=== PATIENT | female | born 1945 ===

== ENCOUNTER 2020-09-20 16:28 | Outpatient (REF) | payer MEDICARE, BC, SELFPAY ==
[2020-09-20 16:45] LABS: Abs Immature Grans 0.01 10^3/uL (0.0-0.06); Absolute Basophil Count 0.04 10^3/uL (0.0-0.2); Absolute Lymphocyte Count 0.51 10^3/uL (1.2-3.4); Absolute Monocyte Count 0.34 10^3/uL (0.1-0.8); Basophils % 0.9; Eosinophils % 2.2; HCT 34.5 % (36.0-46.0); HGB 10.7 g/dL (11.2-15.7); Immature Grans % 0.2; Lymphocytes % 11.3; MCH 29.8 pg (27.0-33.0); MCV 96.1 fL (80-95); MPV 9.4 fL (8.0-11.0); Monocytes % 7.6; Neutrophils % 77.8; Nucleated RBC 0 %; Platelet Count 347 10^3/uL (130-400); RBC 3.59 10^6/uL (3.93-5.22); RDW 13.2 % (11.7-14.6); RDW-SD 46.7 fL
[2020-09-20 17:10] LABS: ALT 27 U/L (14-59); AST 21 U/L (15-37); Albumin 2.9 g/dL (3.4-5.0); Alkaline Phosphatase 70 U/L (46-116); Anion Gap 5.3 mmol/L (3-11); BUN 22 mg/dL (7-18); Bilirubin, Total 0.3 mg/dL (0.2-1.0); CO2 29.7 mmol/L (21.0-32.0); CREATININE 0.7 mg/dL (0.55-1.02); Calcium 8.5 mg/dL (8.5-10.1); Chloride 108 mmol/L (98-107); Ferritin 17 ng/mL (8-252); Glucose 90 mg/dL (74-106); Potassium 4.1 mmol/L (3.5-5.1); Sodium 143 mmol/L (136-145); Total Protein 5.5 g/dL (6.4-8.2); Vitamin B12 526 pg/mL (193-986)
== END 2020-09-20 16:29 | disposition home or self-care (01) ==
LOC: NCHCN 16:28
PROVIDERS: Visit Provider Family Medicine
DX: K90.9 Intestinal malabsorption, unspecified (principal)
CPT/HCPCS: 80053; 82607; 82728; 85025

== ENCOUNTER 2020-11-10 10:22 | Outpatient (REF) | payer MEDICARE, BC, SELFPAY ==
[2020-11-10 14:05] LABS: HCT 37.3 % (36.0-46.0); HGB 11.7 g/dL (11.2-15.7); MCH 30.6 pg (27.0-33.0); MCHC 31.4 % (32.0-36.0); MCV 97.6 fL (80-95); MPV 9.9 fL (8.0-11.0); Platelet Count 268 10^3/uL (130-400); RBC 3.82 10^6/uL (3.93-5.22); RDW 14.2 % (11.7-14.6); WBC 3.52 10^3/uL (4.4-10.8)
[2020-11-10 14:33] LABS: Ferritin 21 ng/mL (8-252)
== END 2020-11-10 10:23 | disposition home or self-care (01) ==
LOC: NCHCN 10:22
PROVIDERS: Visit Provider Family Medicine
DX: E66.1 Drug-induced obesity (principal)
CPT/HCPCS: 85027; 82728

== ENCOUNTER 2021-03-14 14:04 | Outpatient (REF) | payer MEDICARE, BC, SELFPAY ==
[2021-03-14 14:22] LABS: MCH 31.1 pg (27.0-33.0); MCHC 31.4 % (32.0-36.0); MCV 98.9 fL (80-95); MPV 9.7 fL (8.0-11.0); Platelet Count 298 10^3/uL (130-400); RBC 3.54 10^6/uL (3.93-5.22); RDW 13.2 % (11.7-14.6); RDW-SD 48.1 fL; WBC 4.25 10^3/uL (4.4-10.8)
[2021-03-14 15:14] LABS: ALT 26 U/L (14-59); AST 22 U/L (15-37); Albumin 3.1 g/dL (3.4-5.0); Alkaline Phosphatase 71 U/L (46-116); Anion Gap 6.5 mmol/L (3-11); BUN 20 mg/dL (7-18); Bilirubin, Total 0.3 mg/dL (0.2-1.0); CO2 28.5 mmol/L (21.0-32.0); CREATININE 0.7 mg/dL (0.55-1.02); Calcium 8.6 mg/dL (8.5-10.1); Chloride 107 mmol/L (98-107); Glucose 78 mg/dL (74-106); Potassium 4.2 mmol/L (3.5-5.1); Sodium 142 mmol/L (136-145); Total Protein 5.5 g/dL (6.4-8.2)
== END 2021-03-14 14:05 | disposition home or self-care (01) ==
LOC: NCHCN 14:04
PROVIDERS: PCP Family Medicine; Visit Provider Family Medicine
DX: R53.82 Chronic fatigue, unspecified (principal); M81.8 Other osteoporosis without current pathological fracture; M79.7 Fibromyalgia; Z00.00 Encounter for general adult medical examination without abnormal findings
CPT/HCPCS: 80053; 85027

== ENCOUNTER 2021-06-02 04:00 | Outpatient (CLI) | payer MEDICARE, BC, SELFPAY ==
[2021-06-02 10:13] LABS: HCT 32.4 % (36.0-46.0); HGB 10.3 g/dL (11.2-15.7); MCH 32.3 pg (27.0-33.0); MCHC 31.8 % (32.0-36.0); MCV 101.6 fL (80-95); Platelet Count 287 10^3/uL (130-400); RBC 3.19 10^6/uL (3.93-5.22); RDW 14.1 % (11.7-14.6); WBC 4.65 10^3/uL (4.4-10.8)
[2021-06-02 11:25] LABS: Iron 75 ug/dL (50-170); Total Iron Binding Capacity 295 ug/dL (250-450); Transferrin Sat 25 % (15-50)
[2021-06-02 11:38] LABS: Ferritin 32 ng/mL (8-252)
[2021-06-02 22:04] LABS: CEA <0.5 ng/mL (See Note)
== END 2021-06-02 04:01 | disposition home or self-care (01) ==
LOC: LBO 04:00
PROVIDERS: PCP Nurse Practitioner; Visit Provider Nurse Practitioner
DX: Z85.048 Personal history of other malignant neoplasm of rectum, rectosigmoid junction, and anus (principal); K90.9 Intestinal malabsorption, unspecified
CPT/HCPCS: 36415; 85027; 82378; 82728; 83540; 83550

== ENCOUNTER 2021-08-23 04:10 | Outpatient (RCR) | payer MEDICARE, BC, SELFPAY ==
[2021-08-16] MEDS: IRON SUCROSE COMPLEX 300 MG in Normal Saline 250 ML 176.667 MG IVPB (11:25)
[2021-08-16] MEDS: Normal Saline Flush 10 ML SYR IVP (11:32)
[2021-08-23] MEDS: Normal Saline Flush 10 ML SYR IVP (10:14)
[2021-08-23] MEDS: IRON SUCROSE COMPLEX 300 MG in Normal Saline 250 ML 176.667 MG IVPB (10:23)
== END 2021-08-29 23:59 | disposition home or self-care (01) ==
LOC: INF 04:10
PROVIDERS: PCP Nurse Practitioner; Visit Provider Nurse Practitioner Acute Care
DX: D50.9 Iron deficiency anemia, unspecified (principal)
CPT/HCPCS: 96365; 96366; J1756

== ENCOUNTER 2021-08-30 03:33 | Outpatient (RCR) | payer MEDICARE, BC, SELFPAY ==
[2021-08-30] MEDS: Normal Saline Flush 10 ML SYR IVP (10:13)
[2021-08-30] MEDS: IRON SUCROSE COMPLEX 300 MG in Normal Saline 250 ML 176.667 MG IVPB (10:17)
== END 2021-09-28 23:59 | disposition home or self-care (01) ==
LOC: INF 03:33
PROVIDERS: PCP Nurse Practitioner; Visit Provider Nurse Practitioner Acute Care
DX: D50.9 Iron deficiency anemia, unspecified (principal); K90.9 Intestinal malabsorption, unspecified
CPT/HCPCS: 96365; 96366; J1756

== ENCOUNTER 2021-09-27 01:57 | Outpatient (CLI) | payer MEDICARE, BC, SELFPAY ==
[2021-09-27 10:58] LABS: HCT 32.2 % (36.0-46.0); HGB 9.8 g/dL (11.2-15.7); MCH 29.1 pg (27.0-33.0); MCHC 30.4 % (32.0-36.0); MCV 96 fL (80-95); MPV 8.4 fL (8.0-11.0); Platelet Count 312 10^3/uL (130-400); RBC 3.37 10^6/uL (3.93-5.22); RDW 13.1 % (11.7-14.6); WBC 5.21 10^3/uL (4.4-10.8)
[2021-09-27 11:51] LABS: Iron 39 ug/dL (50-170); Total Iron Binding Capacity 346 ug/dL (250-450); Transferrin Sat 11 % (15-50)
[2021-09-27 12:04] LABS: Ferritin 57 ng/mL (8-252)
[2021-09-28 08:40] LABS: Transferrin 259 mg/dL (201-352)
== END 2021-09-27 01:58 | disposition home or self-care (01) ==
LOC: LBO 01:57
PROVIDERS: PCP Nurse Practitioner; Visit Provider Nurse Practitioner
DX: E61.1 Iron deficiency (principal); K90.89 Other intestinal malabsorption
CPT/HCPCS: 36415; 85027; 82728; 83540; 83550; 84466

== ENCOUNTER 2021-10-24 03:08 | Outpatient (RCR) | payer MEDICARE, BC, SELFPAY ==
[2021-10-10] MEDS: Normal Saline Flush 10 ML SYR IVP (12:19)
[2021-10-10] MEDS: IRON SUCROSE COMPLEX 300 MG in Normal Saline 250 ML 176.667 MG IVPB (12:22)
[2021-10-16] MEDS: IRON SUCROSE COMPLEX 300 MG in Normal Saline 250 ML 176.667 MG IVPB (11:11)
[2021-10-16] MEDS: Normal Saline Flush 10 ML SYR IVP (11:11)
[2021-10-24] MEDS: Normal Saline Flush 10 ML SYR IVP (11:17)
[2021-10-24] MEDS: IRON SUCROSE COMPLEX 300 MG in Normal Saline 250 ML 176.667 MG IVPB (11:25)
== END 2021-10-29 23:59 | disposition home or self-care (01) ==
LOC: INF 03:08
PROVIDERS: PCP Nurse Practitioner; Visit Provider Nurse Practitioner Acute Care
DX: D50.9 Iron deficiency anemia, unspecified (principal); K90.9 Intestinal malabsorption, unspecified
CPT/HCPCS: 96365; 96366; J1756

== ENCOUNTER 2021-12-07 03:00 | Outpatient (CLI) | payer MEDICARE, BC, SELFPAY ==
[2021-12-07 12:22] LABS: Reticulocyte 2.9 % (0.5-2.4)
[2021-12-07 12:22] LABS: MCH 30.2 pg (27.0-33.0); MCHC 32.4 % (32.0-36.0); MCV 93 fL (80-95); MPV 9.5 fL (8.0-11.0); Platelet Count 307 10^3/uL (130-400); RBC 3.64 10^6/uL (3.93-5.22); RDW-SD 55.2 fL; WBC 4.98 10^3/uL (4.4-10.8)
[2021-12-07 12:26] LABS: Iron 197 ug/dL (50-170); Total Iron Binding Capacity 327 ug/dL (250-450); Transferrin Sat 60 % (15-50)
[2021-12-07 13:05] LABS: Ferritin 48 ng/mL (8-252)
== END 2021-12-07 03:01 | disposition home or self-care (01) ==
LOC: LOS 03:00
PROVIDERS: Internal Medicine Hematology; PCP Nurse Practitioner; Visit Provider Nurse Practitioner
DX: E61.1 Iron deficiency (principal); K90.9 Intestinal malabsorption, unspecified
CPT/HCPCS: 36415; 85027; 85045; 82728; 83540; 83550

== ENCOUNTER 2022-01-31 03:26 | Outpatient (CLI) | payer MEDICARE, BC, SELFPAY ==
[2022-01-31 12:18] LABS: Abs Immature Grans 0.01 10^3/uL (0.0-0.06); Absolute Basophil Count 0.04 10^3/uL (0.0-0.2); Absolute Eosinophil Count 0.08 10^3/uL (0.0-0.7); Absolute Monocyte Count 0.32 10^3/uL (0.1-0.8); Absolute Neutrophil Count 2.69 10^3/uL (1.2-6.7); Eosinophils % 2.1; HCT 36.2 % (36.0-46.0); HGB 11.4 g/dL (11.2-15.7); Immature Grans % 0.3; Lymphocytes % 18.2; MCH 30.7 pg (27.0-33.0); MCHC 31.5 % (32.0-36.0); MCV 98 fL (80-95); MPV 9.6 fL (8.0-11.0); Monocytes % 8.3; Neutrophils % 70.1; Platelet Count 272 10^3/uL (130-400); RBC 3.71 10^6/uL (3.93-5.22); RDW 14.4 % (11.7-14.6); RDW-SD 51.9 fL; Reticulocyte 1.8 % (0.5-2.4); WBC 3.84 10^3/uL (4.4-10.8)
[2022-01-31 12:39] LABS: Iron 48 ug/dL (50-170); Total Iron Binding Capacity 353 ug/dL (250-450); Transferrin Sat 14 % (15-50)
[2022-01-31 12:48] LABS: Ferritin 32 ng/mL (8-252)
== END 2022-01-31 03:27 | disposition home or self-care (01) ==
LOC: LOS 03:28
PROVIDERS: PCP Nurse Practitioner; Visit Provider Internal Medicine Hematology
DX: D50.9 Iron deficiency anemia, unspecified (principal); K92.2 Gastrointestinal hemorrhage, unspecified
CPT/HCPCS: 36415; 82728; 83540; 83550; 85025; 85045

== ENCOUNTER 2022-02-23 00:58 | Outpatient (RCR) | payer MEDICARE, BC, SELFPAY ==
[2022-02-23] MEDS: Normal Saline Flush 10 ML SYR IVP (11:15)
[2022-02-23] MEDS: IRON SUCROSE COMPLEX 300 MG in Normal Saline 250 ML 176.667 MG IVPB (11:20)
== END 2022-02-28 23:59 | disposition home or self-care (01) ==
LOC: INF 00:58
PROVIDERS: PCP Nurse Practitioner Family; Visit Provider Nurse Practitioner Family
DX: D50.9 Iron deficiency anemia, unspecified (principal)
CPT/HCPCS: 96365; 96366; J1756

== ENCOUNTER 2022-03-08 01:23 | Outpatient (RCR) | payer MEDICARE, BC, SELFPAY ==
[2022-03-01] MEDS: Normal Saline Flush 10 ML SYR IVP (10:57)
[2022-03-01] MEDS: IRON SUCROSE COMPLEX 300 MG in Normal Saline 250 ML 176.667 MG IVPB (10:57)
[2022-03-08] MEDS: Normal Saline Flush 10 ML SYR IVP (11:19)
[2022-03-08] MEDS: IRON SUCROSE COMPLEX 300 MG in Normal Saline 250 ML 176.667 MG IVPB (11:21)
== END 2022-03-31 23:59 | disposition home or self-care (01) ==
LOC: INF 01:23
PROVIDERS: PCP Nurse Practitioner Family; Visit Provider Nurse Practitioner Family
DX: D50.9 Iron deficiency anemia, unspecified (principal)
CPT/HCPCS: 96365; 96366; J1756

== ENCOUNTER 2022-04-19 03:58 | Outpatient (CLI) | payer MEDICARE, BC, SELFPAY ==
[2022-04-19 12:36] LABS: HCT 34.8 % (36.0-46.0); HGB 11.4 g/dL (11.2-15.7); MCH 31.7 pg (27.0-33.0); MCHC 32.8 % (32.0-36.0); MCV 97 fL (80-95); MPV 9.4 fL (8.0-11.0); Platelet Count 299 10^3/uL (130-400); RDW 14.3 % (11.7-14.6); RDW-SD 50.3 fL; Reticulocyte 3.2 % (0.5-2.4); WBC 4.72 10^3/uL (4.4-10.8)
[2022-04-19 12:54] LABS: Ferritin 67 ng/mL (8-252)
[2022-04-19 13:05] LABS: Iron 127 ug/dL (50-170); Total Iron Binding Capacity 340 ug/dL (250-450); Transferrin Sat 37 % (15-50)
== END 2022-04-19 03:59 | disposition home or self-care (01) ==
LOC: LOS 03:58
PROVIDERS: PCP Nurse Practitioner Family; Visit Provider Nurse Practitioner Adult Health
DX: D50.9 Iron deficiency anemia, unspecified (principal)
CPT/HCPCS: 36415; 85027; 82728; 83540; 83550; 85045

== ENCOUNTER 2022-07-12 09:38 | Outpatient (REF) | payer MEDICARE, BC, SELFPAY ==
[2022-07-12 14:42] LABS: Abs Immature Grans 0.02 10^3/uL (0.0-0.06); Absolute Basophil Count 0.04 10^3/uL (0.0-0.2); Absolute Eosinophil Count 0.14 10^3/uL (0.0-0.7); Absolute Lymphocyte Count 0.56 10^3/uL (1.2-3.4); Absolute Monocyte Count 0.28 10^3/uL (0.1-0.8); Absolute Neutrophil Count 2.48 10^3/uL (1.2-6.7); Basophils % 1.1; HCT 40.4 % (36.0-46.0); HGB 12.5 g/dL (11.2-15.7); Immature Grans % 0.6; Lymphocytes % 15.9; MCH 30.3 pg (27.0-33.0); MCHC 30.9 % (32.0-36.0); MCV 98 fL (80-95); MPV 9.4 fL (8.0-11.0); Neutrophils % 70.4; Platelet Count 291 10^3/uL (130-400); RBC 4.12 10^6/uL (3.93-5.22); RDW 14.6 % (11.7-14.6); RDW-SD 52.8 fL; WBC 3.52 10^3/uL (4.4-10.8)
[2022-07-12 15:07] LABS: Anion Gap 7.1 mmol/L (3-11); BUN 22 mg/dL (7-18); CO2 27.9 mmol/L (21.0-32.0); CREATININE 0.6 mg/dL (0.55-1.02); Calculated LDL 66 mg/dL (<100); Chloride 106 mmol/L (98-107); Cholesterol 171 mg/dL (<200); Estimated GFR 92.97 (mL/min/1.73m2); Ferritin 37 ng/mL (8-252); Glucose 79 mg/dL (74-106); HDL Cholesterol 96 mg/dL (40-60); Sodium 141 mmol/L (136-145); TSH (W/Ref FT4) 1.95 uIU/mL (0.36-3.74); Triglyceride 46 mg/dL (<150); Vitamin B12 630 pg/mL (193-986)
[2022-07-12 15:50] LABS: Vitamin D 25 Total 25.6 ng/mL (30-100)
[2022-07-12 17:05] LABS: Iron 31 ug/dL (50-170); Total Iron Binding Capacity 364 ug/dL (250-450); Transferrin Sat 9 % (15-50)
== END 2022-07-12 09:39 | disposition home or self-care (01) ==
LOC: NCHCN 09:38
PROVIDERS: PCP Nurse Practitioner Family; Visit Provider Nurse Practitioner Family
DX: F41.8 Other specified anxiety disorders (principal); E61.1 Iron deficiency; K90.9 Intestinal malabsorption, unspecified; R53.82 Chronic fatigue, unspecified; M81.8 Other osteoporosis without current pathological fracture; M79.7 Fibromyalgia; Z90.49 Acquired absence of other specified parts of digestive tract; R79.89 Other specified abnormal findings of blood chemistry
CPT/HCPCS: 80048; 80061; 82306; 82607; 82728; 83540; 83550; 84443; 85025

== ENCOUNTER 2022-07-26 13:55 | Outpatient (REF) | payer MEDICARE, BC, SELFPAY ==
[2022-07-26 15:29] LABS: Folate > 20.0 ng/mL (8.6-20.0)
== END 2022-07-26 13:56 | disposition home or self-care (01) ==
LOC: NCHCN 13:55
PROVIDERS: PCP Nurse Practitioner Family; Visit Provider Nurse Practitioner Family
DX: E61.1 Iron deficiency (principal)
CPT/HCPCS: 82746

== ENCOUNTER 2022-08-06 00:56 | Outpatient (CLI) | payer MEDICARE, BC, SELFPAY ==
--- NOTE | 2022-08-06 10:35 | DI.RAD_ITS ---
Exam(s) XR HIP PELVIS ADULT BL EXAM: XR HIP PELVIS ADULT BLz CLINICAL HISTORY: SCOLIOSIS, M41.9; RT HIP PAIN, M25.551; CHRONIC LBP, M54.5. TECHNIQUE: 2D digital imaging was performed. Three views. COMPARISON: No exams were available for comparison FINDINGS: BONES: No acute fracture is present. No bony destructive lesion is seen. Advanced degenerative cardoza ges are noted in the lower lumbar spine. JOINTS: No dislocation present. Hip joint spaces are maintained. There is minimal acetabular spurrin g. There is mild spurring at the greater trochanters. The SI joints are unremarkable. SOFT TISSUE: Large quantity of stool is noted. IMPRESSION: Mild degenerative changes of both hips. DATA REPOSITORY: RADIATION DOSE DELIVERED:
== END 2022-08-06 01:16 ==
LOC: DI 00:56
PROVIDERS: PCP Nurse Practitioner Family; Visit Provider Nurse Practitioner Family
DX: M41.9 Scoliosis, unspecified (principal); M25.551 Pain in right hip; M54.50 Low back pain, unspecified
CPT/HCPCS: 73521

== ENCOUNTER 2022-08-13 11:29 | Outpatient (CLI) | payer MEDICARE, BC, SELFPAY ==
--- NOTE | 2022-08-13 11:00 | DI.RAD_ITS ---
Exam(s) XR LUMBAR SPINE COMPLETE EXAM: XR LUMBAR SPINE COMPLETE CLINICAL HISTORY: back pain. TECHNIQUE: 2D digital imaging was performed. Five views. COMPARISON: No exams were available for comparison FINDINGS: BONES: No fracture or destructive lesion. Vertebral body heights are maintained. Mild facet hypertro phy identified. DISKS: Asymmetric disc space narrowing on the left side at L3-4 and L4-5. Asymmetric disc space narr owing on the right at L1-2 and L2-3. ALIGNMENT: Scoliosis, convex toward the right in the lumbar region. Scoliosis convex to the left at the thoracolumbar junction. No spondylolisthesis. SOFT TISSUE: Large amount of stool, obscuring visualization of the sacrum. IMPRESSION: Degenerative changes and scoliosis. DATA REPOSITORY: RADIATION DOSE DELIVERED:
== END 2022-08-13 11:30 | disposition home or self-care (01) ==
LOC: DIORS 11:29
PROVIDERS: PCP Nurse Practitioner Family; Referring Provider Nurse Practitioner Family; Visit Provider Student in an Organized Health Care Education/Training Program
DX: M54.9 Dorsalgia, unspecified (principal); M41.9 Scoliosis, unspecified; M70.61 Trochanteric bursitis, right hip
CPT/HCPCS: 99203; 72110

== ENCOUNTER 2022-09-27 01:24 | Outpatient (CLI) | payer MEDICARE, BC, SELFPAY ==
--- NOTE | 2022-09-27 | DI.RAD_ITS ---
Exam(s) XR ABDOMEN FLAT PLATE EXAM: 2D digital imaging was performed. CLINICAL HISTORY: FOREIGN BODY IN DIGESTIVE TRACT,t18.9XXA,ASSESS FOR PILLCAM PASSAGE IN GI. COMPARISON: No exams were available for comparison TECHNIQUE: Supine views of the abdomen performed. FINDINGS: BOWEL GAS PATTERN: Nondistended. Large quantity of stool throughout the colon. CALCIFICATIONS: No radiopaque calcifications. OSSEOUS STRUCTURES: Degenerative changes and scoliosis. OTHER FINDINGS: Small electronic device position in low pelvis which may be be at the level of the re ctum. IMPRESSION: 1. Nonobstructive bowel gas pattern. Large quantity of stool. 2. PillCam noted in low pelvis which may lie in the rectum. DATA REPOSITORY: RADIATION DOSE DELIVERED:
== END 2022-09-27 01:44 ==
LOC: DI 01:24
PROVIDERS: PCP Nurse Practitioner Family; Visit Provider Internal Medicine Gastroenterology
DX: T18.9XXA Foreign body of alimentary tract, part unspecified, initial encounter (principal)
CPT/HCPCS: 74018

== ENCOUNTER 2022-09-27 11:22 | Outpatient (REF) | payer MEDICARE, BC, SELFPAY ==
[2022-09-27 14:34] LABS: Abs Immature Grans 0.02 10^3/uL (0.0-0.06); Absolute Basophil Count 0.06 10^3/uL (0.0-0.2); Absolute Eosinophil Count 0.08 10^3/uL (0.0-0.7); Absolute Lymphocyte Count 0.56 10^3/uL (1.2-3.4); Absolute Monocyte Count 0.33 10^3/uL (0.1-0.8); Absolute Neutrophil Count 3.84 10^3/uL (1.2-6.7); Basophils % 1.2; Eosinophils % 1.6; HCT 36.6 % (36.0-46.0); HGB 11.5 g/dL (11.2-15.7); Immature Grans % 0.4; Lymphocytes % 11.5; MCH 31.3 pg (27.0-33.0); MCHC 31.4 % (32.0-36.0); MCV 100 fL (80-95); MPV 9.5 fL (8.0-11.0); Monocytes % 6.7; Neutrophils % 78.6; Platelet Count 303 10^3/uL (130-400); RBC 3.68 10^6/uL (3.93-5.22); RDW 13.6 % (11.7-14.6); RDW-SD 50.3 fL; Reticulocyte 2.8 % (0.5-2.4); WBC 4.89 10^3/uL (4.4-10.8)
[2022-09-27 15:16] LABS: Iron 30 ug/dL (50-170); Total Iron Binding Capacity 305 ug/dL (250-450); Transferrin Sat 10 % (15-50)
[2022-09-27 15:30] LABS: Ferritin 48 ng/mL (8-252)
== END 2022-09-27 11:23 | disposition home or self-care (01) ==
LOC: NCHCN 11:22
PROVIDERS: PCP Nurse Practitioner Family; Visit Provider Nurse Practitioner Family
DX: D50.9 Iron deficiency anemia, unspecified (principal)
CPT/HCPCS: 82728; 83540; 83550; 85025; 85045

== ENCOUNTER 2022-10-16 00:35 | Outpatient (CLI) | payer MEDICARE, BC, SELFPAY ==
--- NOTE | 2022-10-16 | DI.RAD_ITS ---
Exam(s) XR ABDOMEN FLAT PLATE EXAM: 2D digital imaging was performed. CLINICAL HISTORY: IRON DEFICIENCY ADEMIA, D50.9. COMPARISON: CR XR LUMBAR SPINE COMPLETE from 08/13/2022 CR XR ABDOMEN FLAT PLATE from 09/27/2022 TECHNIQUE: Supine views of the abdomen performed. FINDINGS: BOWEL GAS PATTERN: Nondistended. There is a moderate amount of stool in the colon. CALCIFICATIONS: No radiopaque calcifications. OSSEOUS STRUCTURES: There is a right convex curvature of the lower lumbar spine. Degenerative change s are present in the spine. OTHER FINDINGS: The electronic device remains in the pelvis. The lung bases are clear. IMPRESSION: 1. Nonobstructive bowel gas pattern. 2. The small metallic device is again seen in the low pelvis. This may lie in the rectum or distal s igmoid colon. If further clarification is required, a noncontrast CT scan of the pelvis may be obtai elias. DATA REPOSITORY: RADIATION DOSE DELIVERED:
== END 2022-10-16 00:55 ==
LOC: DI 00:35
PROVIDERS: PCP Nurse Practitioner Family; Visit Provider Nurse Practitioner Family
DX: D50.9 Iron deficiency anemia, unspecified (principal)
CPT/HCPCS: 74018

== ENCOUNTER → 2022-12-28 00:31 | Outpatient (CLI) | payer MEDICARE, BC, SELFPAY ==
--- NOTE | 2022-12-28 11:56 | DI.RAD_ITS ---
Exam(s) RF SMALL BOWEL SERIES EXAM: RF SMALL BOWEL SERIES CLINICAL HISTORY: IRRITABLE BOWEL SYNDROME, CONSTIPATION, K58.1 TECHNIQUE: 2D and realtime digital imaging was performed. CONTRAST MATERIAL: Oral barium Oral water soluble contrast was administered. COMPARISON: No exams were available for comparison FINDINGS: Preliminary x-ray shows a moderate amount of stool throughout the colon. The patient has a left lowe r quadrant ostomy. There is an S-type scoliosis of the lumbar spine. The patient is also undergoing a capsule endoscopy. The small bowel demonstrates no structural abnormalities including structure, dilation, adhesion, or mass. The terminal ileum is identified and appears unremarkable. Normal transit time of 50 minutes. IMPRESSION: Normal appearance of the small bowel. RADIATION DOSE DELIVERED: doris Toscano=30.4 mGy
[2022-12-28] MEDS: Barium Sulfate 60% W/V 355 ML BTL PO (12:01)
== END ==
PROVIDERS: PCP Nurse Practitioner Family; Visit Provider Nurse Practitioner Family
DX: K58.1 Irritable bowel syndrome with constipation (principal)
CPT/HCPCS: 74250

== ENCOUNTER 2022-12-31 18:55 | Outpatient (REF) | payer MEDICARE, BC, SELFPAY ==
[2022-12-31 14:39] LABS: Abs Immature Grans 0.01 10^3/uL (0.0-0.06); Absolute Basophil Count 0.04 10^3/uL (0.0-0.2); Absolute Eosinophil Count 0.05 10^3/uL (0.0-0.7); Absolute Lymphocyte Count 0.73 10^3/uL (1.2-3.4); Absolute Monocyte Count 0.36 10^3/uL (0.1-0.8); Absolute Neutrophil Count 3.04 10^3/uL (1.2-6.7); Basophils % 0.9; Eosinophils % 1.2; HGB 12.1 g/dL (11.2-15.7); Immature Grans % 0.2; Lymphocytes % 17.3; MCH 31.3 pg (27.0-33.0); MCHC 32.7 % (32.0-36.0); MCV 96 fL (80-95); MPV 9.8 fL (8.0-11.0); Monocytes % 8.5; Neutrophils % 71.9; Platelet Count 284 10^3/uL (130-400); RBC 3.86 10^6/uL (3.93-5.22); RDW 15.1 % (11.7-14.6); RDW-SD 52.9 fL; WBC 4.23 10^3/uL (4.4-10.8)
[2022-12-31 14:47] LABS: ALT 25 U/L (14-59); AST 25 U/L (15-37); Albumin 3.2 g/dL (3.4-5.0); Alkaline Phosphatase 79 U/L (46-116); Anion Gap 6.6 mmol/L (3-11); BUN 20 mg/dL (7-18); Bilirubin, Total 0.6 mg/dL (0.2-1.0); CO2 29.4 mmol/L (21.0-32.0); CREATININE 0.7 mg/dL (0.55-1.02); Calcium 9.2 mg/dL (8.5-10.1); Chloride 104 mmol/L (98-107); Estimated GFR 89.58 (mL/min/1.73m2); Glucose 93 mg/dL (74-106); Potassium 4.1 mmol/L (3.5-5.1); Sodium 140 mmol/L (136-145); Total Protein 5.8 g/dL (6.4-8.2)
[2022-12-31 14:49] LABS: Iron 56 ug/dL (50-170); Total Iron Binding Capacity 303 ug/dL (250-450); Transferrin Sat 18 % (15-50)
== END 2022-12-31 18:56 | disposition home or self-care (01) ==
LOC: NCHCN 18:55
PROVIDERS: PCP Nurse Practitioner Family; Visit Provider Nurse Practitioner Family
DX: D50.9 Iron deficiency anemia, unspecified (principal)
CPT/HCPCS: 80053; 83540; 83550; 85025

== ENCOUNTER 2023-02-05 18:58 | Outpatient (CLI) | payer MEDICARE, BC, SELFPAY ==
[2023-02-05 13:08] LABS: Abs Immature Grans 0.01 10^3/uL (0.0-0.06); Absolute Basophil Count 0.04 10^3/uL (0.0-0.2); Absolute Eosinophil Count 0.13 10^3/uL (0.0-0.7); Absolute Monocyte Count 0.37 10^3/uL (0.1-0.8); Absolute Neutrophil Count 3.94 10^3/uL (1.2-6.7); Basophils % 0.8; Eosinophils % 2.5; HCT 40.3 % (36.0-46.0); HGB 13.1 g/dL (11.2-15.7); Immature Grans % 0.2; Lymphocytes % 13.5; MCH 31.9 pg (27.0-33.0); MCHC 32.5 % (32.0-36.0); MCV 98 fL (80-95); MPV 9.2 fL (8.0-11.0); Monocytes % 7.1; Neutrophils % 75.9; Platelet Count 259 10^3/uL (130-400); RBC 4.11 10^6/uL (3.93-5.22); RDW 14.6 % (11.7-14.6); RDW-SD 53.1 fL; WBC 5.19 10^3/uL (4.4-10.8)
[2023-02-06 20:15] LABS: Gliadin (Deamidated) Ab, IgA <10.0 U; Gliadin (Deamidated) Ab, IgG <10.0 U
[2023-02-06 23:03] LABS: Tissue Transglutaminase Ab IgA <1.2 U/mL; Tissue Transglutaminase Ab IgG <1.2 U/mL
== END 2023-02-05 18:59 | disposition home or self-care (01) ==
LOC: LBO 19:01
PROVIDERS: PCP Nurse Practitioner Family; Visit Provider Internal Medicine Gastroenterology
DX: K92.2 Gastrointestinal hemorrhage, unspecified (principal)
CPT/HCPCS: 36415; 83516; 85025

== ENCOUNTER → 2023-04-05 00:53 | Outpatient (CLI) | payer MEDICARE, BC, SELFPAY ==
--- NOTE | 2023-04-05 10:34 | DI.RAD_ITS ---
Exam(s) XR ABDOMEN FLAT PLATE EXAM: 2D digital imaging was performed. CLINICAL HISTORY: ABD PAIN,R10.9,WT LOSS,R63.4,CONSTIPATION DUE TO OUTLET DYSFUNCTION,K59.02. COMPARISON: CR XR ABDOMEN FLAT PLATE from 10/16/2022 CR,RF RF SMALL BOWEL SERIES from 12/28/2022 TECHNIQUE: Supine views of the abdomen performed. FINDINGS: BOWEL GAS PATTERN: Large quantity of stool. Dilatation small bowel loops in mid and right lower quad rant. Ostomy present. Metallic electronic device seen in mid pelvis. Present on prior examinations . This represents a tablet camera. CALCIFICATIONS: No radiopaque calcifications. OSSEOUS STRUCTURES: Normal scoliosis and degenerative changes. Visualized portions of the lungs are clear. Heart size normal. IMPRESSION: 1. Mild small bowel dilatation. Findings could represent ileus versus obstruction. 2. Ingested camera tablet remains present. DATA REPOSITORY: RADIATION DOSE DELIVERED:
== END ==
PROVIDERS: PCP Nurse Practitioner Family; Visit Provider Nurse Practitioner Family
DX: K59.02 Outlet dysfunction constipation (principal); R63.4 Abnormal weight loss; R10.9 Unspecified abdominal pain
CPT/HCPCS: 74018

== ENCOUNTER 2023-04-05 10:50 | Emergency (ER) | payer MEDICARE, BC, SELFPAY ==
[2023-04-05 10:59] VITALS: BP 119/84; PULSE 77; RESP 18; TEMP 36.8; O2SAT 99
--- NOTE | 2023-04-05 12:11 | ED.GENADUL_ITS ---
HPI General Stated Complaint: Abd Prob Mode of arrival: ambulatory. PHILLIP: 3 Date/Time Provider Initiated Documentation: 04/05/23 10:52. Limitations to Documentation: no limitations. Information obtained by: patient. HPI Narrative: 77-year-old female with multiple medical problems including history of malignant neoplasm of the rectum, status post colostomy remotely, here with abdominal pain and bloating with change in bowel movements over the past weeks. Patient notes intermittent severe crampy abdominal pain with decreased bowel movements. Patient has had workup by a gastrointestinal specialist including CT imaging, barium swallow and x-rays. She notes concern for a stricture and there is plan for endoscopic procedure to evaluate. She notes she had an outpatient abdominal x-ray today and was advised to come to the emergency by her primary care physician. She is hesitant about being here today and reluctant to pursue diagnostic workup per nursing. She does note concern for dehydration and lack of nutrition. Related Data Home Medications Medication Instructions Recorded Confirmed ascorbic acid (vitamin C) 100 mg 100 mg PO TID 05/16/21 04/05/23 tablet Brava Adhesive Remover Wipe 06/22/21 08/14/22 Brava Moldable Ring 2mm 06/22/21 08/14/22 Brava Skin Barrier Remover [place] 06/22/21 08/14/22 Brava Skin Barrier Wipe 06/22/21 08/14/22 Brava adhesive remover spray 06/22/21 08/14/22 Sensura [place] Click drainable pouch 06/22/21 08/14/22 Sensura [place] Click midi closed pouch 06/22/21 08/14/22 Sensura vidal click cut to fit 06/22/21 08/14/22 barrier cholecalciferol (vitamin D3) 25 25 mcg PO DAILY 06/22/21 04/05/23 mcg (1,000 unit) capsule cyanocobalamin (vitamin B-12) 1,000 mcg PO DAILY 06/22/21 04/05/23 1,000 mcg capsule estrogen PO .2Xweek 06/22/21 08/14/22 magnesium citrate 100 mg capsule 100 mg PO DAILY PRN 03/01/22 04/05/23 polyethylene glycol 3350 17 17 g PO DAILY PRN 04/05/23 04/05/23 gram/dose oral powder (ClearLax) Allergies Allergy/AdvReac Type Severity Reaction Status Date / Time Opioids-Methadone and Related Allergy Intermediate Unverified 04/05/23 11:05 fragrance Allergy Severe Uncoded 04/05/23 11:05 versyd Allergy Intermediate Uncoded 04/05/23 11:05 Review of Systems All systems reviewed & are unremarkable except as noted in HPI and below Constitutional Constitutional: Denies fever(s) Gastrointestinal Gastrointestinal: Reports as per HPI and Denies vomiting PFSH All Active Problems Abdominal pain (Acute) Abdominal bloating (Acute) Trochanteric bursitis, right hip (Acute) Scoliosis (Acute) Hormone imbalance (Acute) IBS (irritable bowel syndrome) (Chronic) Chronic low back pain (Acute) ligamentous following basket ball injury Osteoporosis, idiopathic (Acute) hip Colostomy present (Chronic) Malabsorption syndrome (Acute) Iron deficiency (Acute) Medical History Depression with anxiety Encounter for dual-energy x-ray absoptiometry review (~11/14/16) Mixed hyperlipidemia stable on diet History of shingles Tarsal tunnel syndrome left ankle, surg repair 2017 Recurrent varicose veins bilateral Primary fibromyalgia syndrome 1989' Chronic fatigue syndrome 1989' 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 Brother No problems noted. Brother Alcohol use disorder Maternal Grandfather , 68 Cancer leukemia Paternal Grandfather , ?? Alcohol use disorder Maternal Grandmother , 90? No problems noted. Paternal Grandmother , ? No problems noted. Social History Smoking/Tobacco Use Status: Former Tobacco Use tobacco type: pipe Quit Date: 04/01/69 Second Hand Exposure: Yes Smoking risk assessment performed?: Yes Alcohol Intake: current Alcohol Intake frequency: a few times a month Drug use: Never Substance use type: does not use Household members: none Housing: house Pets and animals: Yes Pets and animals: cat(s) Sexually active: No Do you think of yourself as: lesbian/lewis/homosexual Current gender identity: female How often do you talk on the phone with friends or family?: three or more times per week Do you belong to any clubs or organized social groups?: no Panel score (0-1 are the most socially isolated patients): 1 What type of physical activity do you participate in: walking, regular exercise and other Details: skiing Duration: 60-90 minutes/day Frequency: daily Seatbelt use: always Helmet use: Yes Drive intox or ride w/intox motor driver: No Exam Const General: cooperative and no acute distress HENMT Mouth: mucous membranes dry Eyes Conjunctivae: normal conjunctivae Sclera: normal sclerae Neck Neck: trachea midline and supple Resp Auscultation: clear to auscultation bilaterally, no rales, no rhonchi and no wheezes Cardio Rate: regular rate and not tachycardic Rhythm: regular rhythm GI Palpation: soft, not firm, no guarding, no masses, not rigid and tender in the RLQ and with rebound tenderness Auscultation: normal bowel sounds Skin General skin exam: no rashes or lesions noted Neuro General: patient alert, patient awake and tone normal Extrem General: no edema Psych Appearance: grossly normal Mental Status: mental status grossly normal Affect: anxious affect Course Vital Signs Vital signs: Vital Signs Temperature 36.8 C 04/05/23 10:59 Pulse 77 04/05/23 10:59 Respiratory Rate 18 04/05/23 10:59 Blood Pressure 119/84 04/05/23 10:59 Pulse Oximetry 99 04/05/23 10:59 Temperature 36.8 C 04/05/23 10:59 Temperature Source Oral 04/05/23 10:59 Pulse 77 04/05/23 10:59 Respiratory Rate 18 04/05/23 10:59 Respiratory Effort Normal, Non-Labored 04/05/23 11:07 Blood Pressure 119/84 04/05/23 10:59 Blood Pressure Position Sitting 04/05/23 10:59 Pulse Oximetry 99 04/05/23 10:59 Oxygen Delivery Method Room Air 04/05/23 10:59 Oxygen Flow Rate 0 04/05/23 10:59 Pain Level 4 04/05/23 10:59 Medical Decision Making 77-year-old female with history of remote rectal cancer that was treated with chemoradiation and colostomy, here today at the prompting of her primary care physician after having outpatient abdominal x-ray that shows ileus versus bowel obstruction. Patient has had severe intermittent abdominal cramping and pain in her right lower abdomen with bloating. Symptoms have been ongoing for weeks. Patient notes intermittent diarrhea and intermittent constipation. She is being evaluated by GI and has been referred to [facility] where she has had multiple diagnostic procedures including camera pill which is still retained in her bowel. On examination she is tender in her right lower abdomen with some localized bloating in that area. She does have rebound tenderness. Patient is concerned that she may be dehydrated and nutritionally depleted. She does have dry mucous membranes on examination. Plan to assess for acute surgical pathology including bowel obstruction versus other with CT of the abdomen and pelvis. Plan to check diagnostic labs to assess for significant electrolyte abnormalities, anemia, pancreatitis and liver dysfunction. I had a discussion with the patient about my diagnostic/treatment plan. Patient declines plan and wishes to leave against medical advise. I reiterated my concerns to the patient and explained the risks of leaving prior to completion of workup and treatment. I specifically emphasized the possibility of life- threatening or lifestyle modifying disease that would not be appropriately treated if they leave. Patient verbalized understanding of my concerns and the potential for life threatening or lifestyle modifying disease. Patient has capacity to make informed decision. I again explained my concerns and urged the patient to stay for treatment as outlined. Patient continued to refuse. I then discussed potential less ideal alternatives to diagnostic/treatment plan including IV fluids and reassessment and patient refused. I recommended that the patient follow-up with her GI specialist and primary care primary care physician KEILY or return to the Emergency Department at any time for further treatment. Quality:SDOH Health Related Social Needs: No Data to Display Discharge Plan Disposition Patient Disposition: Against Medical Advice Discharge Details Chief Complaint: Abd Prob Clinical Impression: Abdominal bloating, Abdominal pain Primary Care Provider: Irene Gonzales ED Provider: Alessandro Barrientos Home Meds and New Rx's Prescriptions: No Action (DME) Brava adhesive remover spray See Rx Instructions .Route .MEDSUPPLY Rx Instructions: item # [id number] (DME) Brava Moldable Ring 2mm See Rx Instructions .Route .MEDSUPPLY Rx Instructions: item# [id number] (DME) Brava Skin Barrier Wipe See Rx Instructions .Route .MEDSUPPLY Rx Instructions: Item # [id number] (DME) Brava Adhesive Remover Wipe See Rx Instructions .Route .MEDSUPPLY Rx Instructions: Item # [id number] (DME) Brava Skin Barrier Remover [place] See Rx Instructions .Route .MEDSUPPLY Rx Instructions: Item # [id number] (DME) Sensura vidal click cut to fit barrier See Rx Instructions .Route .MEDSUPPLY Rx Instructions: item # [id number] (DME) Sensura [place] Click midi closed pouch See Rx Instructions .Route .MEDSUPPLY Rx Instructions: Item # [id number] (DME) Sensura Vidal Click drainable pouch See Rx Instructions .Route .MEDSUPPLY Rx Instructions: Item # [id number] estrogen PO .2Xweek Rx Instructions: Compounded Estrogen E1 E2 0.5mg/ E3 4mg capsules [facility] [phone] cyanocobalamin (vitamin B-12) 1,000 mcg capsule 1,000 mcg PO DAILY cholecalciferol (vitamin D3) 25 mcg (1,000 unit) capsule 25 mcg PO DAILY magnesium citrate 100 mg capsule 100 mg PO DAILY PRN ascorbic acid (vitamin C) 100 mg tablet 100 mg PO TID Patient Comments: believes she takes 500mg polyethylene glycol 3350 [ClearLax] 17 gram/dose powder 17 g PO DAILY PRN Discharge Instructions Instructions: Against Medical Advice (ED) Additional Instructions: You had an abdominal x-ray today that revealed the followin. Mild small bowel dilatation. Findings could represent ileus versus obstruction. 2. Ingested camera tablet remains present. It was recommended that you have further diagnostics today including labs and CT imaging. You have provided informed refusal of diagnostic workup. Based on findings of x-ray and limited evaluation in the emergency department, understanding that you are leaving without further diagnostic workup, I would recommend close outpatient follow-up with your gastrointestinal specialist and maintain a clear liquid diet over the next 2 days. Advance diet slowly at the direction of your GI specialist. Please contact your primary care physician to arrange follow-up. Return to the ER at any time for further workup and treatment as recommended. Referrals: Irene Gonzales [Primary Care Provider] -
== END 2023-04-05 12:18 | disposition left against medical advice (07) ==
PROVIDERS: Emergency Provider Student in an Organized Health Care Education/Training Program; PCP Nurse Practitioner Family
DX: R10.31 Right lower quadrant pain (principal); R14.0 Abdominal distension (gaseous); Z85.048 Personal history of other malignant neoplasm of rectum, rectosigmoid junction, and anus; Z93.3 Colostomy status
CPT/HCPCS: 80053; 83690; 99283; 74018; 83605; 85025

== ENCOUNTER 2023-07-15 14:23 | Outpatient (REF) | payer MEDICARE, BC, SELFPAY ==
[2023-07-15 15:28] LABS: Abs Immature Grans 0.01 10^3/uL (0.0-0.06); Absolute Basophil Count 0.04 10^3/uL (0.0-0.2); Absolute Eosinophil Count 0.06 10^3/uL (0.0-0.7); Absolute Lymphocyte Count 0.67 10^3/uL (1.2-3.4); Absolute Monocyte Count 0.32 10^3/uL (0.1-0.8); Absolute Neutrophil Count 3.39 10^3/uL (1.2-6.7); Basophils % 0.9; Eosinophils % 1.3; HCT 42.4 % (36.0-46.0); HGB 13.6 g/dL (11.2-15.7); Immature Grans % 0.2; Lymphocytes % 14.9; MCH 31.5 pg (27.0-33.0); MCHC 32.1 % (32.0-36.0); MCV 98 fL (80-95); MPV 9.7 fL (8.0-11.0); Monocytes % 7.1; Neutrophils % 75.6; Platelet Count 244 10^3/uL (130-400); RBC 4.32 10^6/uL (3.93-5.22); RDW 13.8 % (11.7-14.6); RDW-SD 50.5 fL; WBC 4.49 10^3/uL (4.4-10.8)
[2023-07-15 15:54] LABS: Ferritin 119 ng/mL (8-252)
== END 2023-07-15 14:24 | disposition home or self-care (01) ==
LOC: NCHCN 14:23
PROVIDERS: PCP Nurse Practitioner Family; Visit Provider Nurse Practitioner Family
DX: K92.2 Gastrointestinal hemorrhage, unspecified (principal)
CPT/HCPCS: 82728; 85025

== ENCOUNTER → 2023-07-29 02:18 | Outpatient (CLI) | payer MEDICARE, BC, SELFPAY ==
--- NOTE | 2023-07-29 07:00 | DI.MAMMO_ITS ---
Exam(s) MAMMO SCREENING EXAM: MAMMO SCREENING CLINICAL HISTORY: screening,z12.39 TECHNIQUE: Mammograms were interpreted according to the usual protocol including computer analysis w ith CAD system, tomosynthesis and C-view imaging. COMPARISON: The patient's outside examinations are not yet available for comparison. An addendum wi ll be issued when and if they become available. FINDINGS: The breasts are composed of heterogeneously dense fibroglandular densities, Breast Density category C . No suspicious masses or suspicious microcalcifications are seen. No skin thickening or abnormal axillary lymph nodes are seen. IMPRESSION: BI-RADS Category 1, Negative mammogram. Yearly screening mammography is recommended. Breast Density Category C, heterogeneously Dense. The mammogram demonstrates the patient's breast tissue is dense. Dense breast tissue is very common a nd is not abnormal but dense breast tissue can make it harder to find cancer on a mammogram. Also, de nse breast tissue may increase breast cancer risk. This information about the result of the mammogram report was provided to the patient to raise their awareness. Use this report when you speak with the patient about their risks for breast cancer, which includes their family history. At that time, you may recommend additional screening tests (Ultrasound or MRI) as they might be useful based on their r isk. A negative radiographic report should not delay biopsy if a dominant or clinically suspicious mass is present. Up to ten percent of cancers are not identified on mammography. A negative report may reinforce clinical impression. Adenosis and dense breasts may obscure an underlying neoplasm. False positive reports average 6 to 10%.
== END ==
PROVIDERS: PCP Nurse Practitioner Family; Visit Provider Obstetrics & Gynecology
DX: Z12.31 Encounter for screening mammogram for malignant neoplasm of breast (principal)
CPT/HCPCS: 77063; 77067

== ENCOUNTER 2023-09-03 04:59 | Outpatient (CLI) | payer MEDICARE, BC, SELFPAY ==
[2023-09-03 18:32] LABS: Estradiol 27 pg/mL (See Note)
== END 2023-09-03 05:00 | disposition home or self-care (01) ==
LOC: LBO 04:59
PROVIDERS: PCP Nurse Practitioner Family; Visit Provider Obstetrics & Gynecology
DX: K90.9 Intestinal malabsorption, unspecified (principal); E34.9 Endocrine disorder, unspecified
CPT/HCPCS: 36415; 82670

== ENCOUNTER 2023-12-13 15:42 | Outpatient (REF) | payer MEDICARE, BC, SELFPAY ==
[2023-12-13 21:57] LABS: Abs Immature Grans 0.01 10^3/uL (0.0-0.06); Absolute Basophil Count 0.05 10^3/uL (0.0-0.2); Absolute Lymphocyte Count 0.74 10^3/uL (1.2-3.4); Absolute Monocyte Count 0.34 10^3/uL (0.1-0.8); Absolute Neutrophil Count 3.69 10^3/uL (1.2-6.7); HCT 39.5 % (36.0-46.0); HGB 13.2 g/dL (11.2-15.7); Immature Grans % 0.2 %; MCH 31.3 pg (27.0-33.0); MCHC 33.4 % (32.0-36.0); MCV 94 fL (80-95); MPV 10.1 fL (8.0-11.0); Monocytes % 6.9 %; Neutrophils % 74.9 %; Platelet Count 209 10^3/uL (130-400); RBC 4.22 10^6/uL (3.93-5.22); RDW 13.8 % (11.7-14.6); WBC 4.93 10^3/uL (4.4-10.8)
[2023-12-13 22:31] LABS: Iron 83 ug/dL (50-170); Total Iron Binding Capacity 317 ug/dL (250-450); Transferrin Sat 26 % (15-50)
[2023-12-13 22:45] LABS: Ferritin 107 ng/mL (8-252)
== END 2023-12-13 15:43 | disposition home or self-care (01) ==
LOC: NCHCN 15:42
PROVIDERS: PCP Nurse Practitioner Family; Visit Provider Nurse Practitioner Family
DX: K58.9 Irritable bowel syndrome, unspecified (principal)
CPT/HCPCS: 82728; 83540; 83550; 85025

== ENCOUNTER 2024-09-10 12:48 | Outpatient (CLI) | payer MEDICARE, SELFPAY ==
--- NOTE | 2024-09-10 | DI.US_ITS ---
Exam(s) US RENAL EXAM: US RENAL CLINICAL HISTORY: Acute rt-sided LBP wo sciatica, M54.50, ? kidney stones TECHNIQUE: Ultrasound of both kidneys performed using standard protocol. COMPARISON: No exams were available for comparison FINDINGS: RIGHT KIDNEY: Measures 10.8 cm in length. No cysts evident. Normal cortical thickness and corticomedullary differentiation .No solid masses No intrarenal calculi noted. However, there appears to be mild hydronephrosis of the right kidney. LEFT KIDNEY: Measures 9.5 cm in length. No cysts evident. Normal cortical thickness and corticomedullary differentiaion. No solids masses. No intrarenal calculi nor hydonephrosis. URINARY BLADDER: Prevoid volume is 194 cc Postvoid volume is 2 cc No evidence of bladder mass nor diverticuli. Ureterovesical jets: Both identified; left stronger than right. IMPRESSION: 1. There appears to be mild hydronephrosis of the right kidney. There are no calculi in the right kidney. 2. No calculi in left kidney and no evidence of hydronephrosis of the left kidney. 3. There is asymmetry in the appearance of the ureterovesical jets at level the urinary bladder, right being weaker than left. The above findings indicate that there may be an obstructive calculus or other obstructing finding in the right ureter. DATA REPOSITORY:
--- NOTE | 2024-09-10 | DI.RAD_ITS ---
Exam(s) XR ABDOMEN FLAT PLATE EXAM: XR ABDOMEN FLAT PLATE CLINICAL HISTORY: Acute rt-sided LBP wo sciatica, M54.50. TECHNIQUE: 2D digital imaging was performed. COMPARISON: CR XR ABDOMEN FLAT PLATE from 04/05/2023 FINDINGS: AP supine view of the abdomen-pelvis: There is a thoracolumbar scoliosis. Bowel gas pattern is nonspecific. There is evidence of previous surgery in the pelvis, possibly partial sigmoid or rectosigmoid resection. There are no obvious radiopaque calculi seen over the he. There are 3 calcifications project over the lateral aspect of the right kidney but these may be related to gallstones or other calcified structures, given that they are not seen in the right kidney on today's ultrasound. There are no obvious radiopaque calculi seen over the mid-lower ureters. In addition to scoliosis there is multilevel chronic degenerative disc disease with asymmetric disc space narrowing and probable element of foraminal stenosis left more than right side in the lumbar spine. IMPRESSION: As above. Given the constellation of findings on today's studies I recommend noninfused CT scan to determine if there are calculi in the right kidney collecting system and this so where it/they are located. DATA REPOSITORY: RADIATION DOSE DELIVERED:
== END 2024-09-10 13:08 ==
LOC: DI 12:49
PROVIDERS: PCP Nurse Practitioner Family; Visit Provider Nurse Practitioner Family
DX: N13.2 Hydronephrosis with renal and ureteral calculous obstruction (principal); M54.50 Low back pain, unspecified
CPT/HCPCS: 76770; 74018

== ENCOUNTER 2024-09-10 14:02 | Outpatient (REF) | payer MEDICARE, SELFPAY ==
[2024-09-10 15:40] LABS: ALT 27 U/L (14-59); AST 25 U/L (15-37); Albumin 3.6 g/dL (3.4-5.0); Alkaline Phosphatase 89 U/L (46-116); Anion Gap 8.5 mmol/L (3-11); BUN 23 mg/dL (7-18); Bilirubin, Total 0.9 mg/dL (0.2-1.0); CO2 27.5 mmol/L (21.0-32.0); CREATININE 0.6 mg/dL (0.55-1.02); Chloride 103 mmol/L (98-107); Estimated GFR 91.82 (mL/min/1.73m2); Ferritin 67 ng/mL (8-252); Glucose 87 mg/dL (74-106); Potassium 4.3 mmol/L (3.5-5.1); Sodium 139 mmol/L (136-145); Total Protein 6.3 g/dL (6.4-8.2)
[2024-09-10 17:36] LABS: Iron 100 ug/dL (50-170); Total Iron Binding Capacity 309 ug/dL (250-450); Transferrin Sat 32 % (15-50)
== END 2024-09-10 14:03 | disposition home or self-care (01) ==
LOC: NCHCN 14:02
PROVIDERS: PCP Nurse Practitioner Family; Visit Provider Nurse Practitioner Family
DX: E61.1 Iron deficiency (principal)
CPT/HCPCS: 80053; 82728; 83540; 83550

== ENCOUNTER 2024-09-11 10:03 | Outpatient (CLI) | payer MEDICARE, SELFPAY ==
--- NOTE | 2024-09-11 10:11 | DI.CT_ITS ---
Exam(s) CT ABDOMEN PELVIS WO EXAM: CT ABDOMEN PELVIS WO CLINICAL HISTORY: F/U ABNL US AND KUB, RT HYDRONEPHROSIS,N13.30. TECHNIQUE: Imaging Protocol: Axial computed tomography images with coronal and sagittal reformatted images were created and reviewed CONTRAST MATERIAL: Intravenous: none Oral: None COMPARISON: CR XR ABDOMEN FLAT PLATE from 09/10/2024 FINDINGS: VISUALIZED LUNG BASES: No nodules nor pleural effusions evident. The uppermost images reveal that the calcifications described in the right upper quadrant on recent plain films actually correspond to calcification at the costochondral junction of a few lower ribs. These calcification are not in the kidney. ABDOMEN: There is no ascites. LIVER: There are no obvious focal hepatic lesions evident of this noninfused study. GALLBLADDER/BILIARY: There is a tiny calcification on the posterior wall of the gallbladder which is either a small calculus or calcified polyp. This is too small to correspond to plain film findings. There is no obvious acute gallbladder pathology.. The CBD is not dilated. PANCREAS: No evidence of pancreatic mass nor dilatation of the pancreatic duct. SPLEEN: Spleen is not enlarged. No obvious intrasplenic lesions. ADRENALS: There are no significant adrenal masses. KIDNEYS: No radiopaque calculi evident in either kidney. No hydronephrosis. No cysts evident. No solid renal masses evident.. ABDOMINAL AORTA: Abdominal aorta is not enlarged. LYMPH NODES: There is no retroperitoneal nor paraaortic adenopathy. GI:: There is a left-sided colostomy. The rectum is oversewn. There is abundant fecal material in the colon Anterior abdominal wall: Left-sided colostomy. No obvious hernias. PELVIS: LYMPH NODES: There is no intrapelvic nor inguinal adenopathy. GI: Appendix is difficult to identify as a distinct structure. However, there are no obvious secondary signs of acute appendicitis.No evidence of diverticulitis in the colon. No obvious colitis pattern. URINARY BLADDER: Collapsed. No obvious findings. REPRODUCTIVE: Uterus is surgically absent. There are no abnormal adnexal masses. OSSEOUS: No significant osseous lesions. No fractures. No listhesis. Multilevel chronic degenerative disc disease. IMPRESSION: 1. Left-sided colostomy. There is abundant fecal material throughout the colon consistent with constipation but no true obstruction. No significantly dilated small bowel loops. 2. There are no renal calculi evident to correspond to the findings on the plain film 3. There is a single tiny gallstone noted but this does not correspond to the finding on the plain films of 09/10/2024. no evidence of acute cholecystitis. 4. The right-sided calcifications described on plain film actually correspond to calcifications in the anterior aspects of 3 adjacent ribs at the costo cartilage junctions. 5. appendix is not seen and may be surgically absent. There is no evidence of acute appendicitis. No evidence of diverticulitis of the colon. 6. Previous hysterectomy. RADIATION DOSE DELIVERED: 285.45mGy.cm Total DLP DATA REPOSITORY: All CT scans at this facility are submitted to the National Radiology Data Registry (NRDR) Dose Index Registry (DIR) with the [employer] (A[employer]). RADIATION OPTIMIZATION: All CT scans at this facility use at least one of these dose optimization techniques: automated exposure control; mA and/or kV adjustment per patient size (includes targeted exams where dose is matched to clinical indication); or iterative reconstruction.
== END 2024-09-11 10:23 ==
LOC: DI 10:03
PROVIDERS: PCP Nurse Practitioner Family; Visit Provider Nurse Practitioner Family
DX: N13.30 Unspecified hydronephrosis (principal)
CPT/HCPCS: 74176